=== PATIENT | male | born 1970 ===

== ENCOUNTER 2024-08-02 10:20 | Outpatient (CLI) | payer OTHER ==
[2024-08-02 10:48] LABS: HEMATOCRIT 41.9 % (39.0-48.0); HEMOGLOBIN 14.6 g/dL (13-16.00); MEAN CELL VOLUME 96.1 fL (80.0-100.00); MEAN CORPUSCULAR HEMOGLOBIN 33.4 pg (27.00-32.0); MEAN CORPUSCULAR HGB CONC 34.7 g/dl (32.0-36.0); PLATELET COUNT 235 K/uL (150-450); RED BLOOD COUNT 4.36 M/uL (4.00-6.00)
[2024-08-02 10:55] LABS: PH,URINE 6.5 (5.0-8.0); URINE APPEARANCE Clear; URINE BILIRRUBIN Negative (NEGATIVE); URINE BLOOD Negative; URINE COLOR Yellow; URINE GLUCOSE Negative (NEGATIVE); URINE KETONE Negative (NEGATIVE); URINE LEUKOCYTE Negative; URINE NITRATE Negative; URINE PROTEIN Negative (NEGATIVE); URINE UROBILINOGEN 0.2 E.U./dl
[2024-08-02 11:07] LABS: URINE BACTERIA 1.2 uL (0.0-1933); URINE EPITHELIAL CELLS 0.1 uL (0.0-38.8); URINE RBC 0.4 uL (0.0-20.8); URINE WBC 0.1 uL (0.0-23.2)
[2024-08-02 11:45] LABS: BILIRUBIN TOTAL 0.83 mg/dL (0.3-1.2); CALCIUM 9.2 mg/dL (8.5-10.1); CHOL HDL RATIO 2.5 (0-5.0); CREATININE SERUM 0.87 mg/dL (0.70-1.30); GFR 91.44; POTASSIUM 4.17 mEq/L (3.5-5.1); PROSTATIC SPECIFIC ANTIGEN 0.636 NG/ML (0.010-4.00); TSH 1.59 uIU/mL (0.358-3.74)
[2024-08-03 09:10] LABS: % FREE PSA 51.7 % (.); free psa 0.31 ng/mL; total psa 0.6 ng/mL (0.0-4.0)
== END 2024-08-02 10:21 | disposition home or self-care (01) ==
LOC: LAB 10:20
DX: E11.9 Type 2 diabetes mellitus without complications (principal); R30.0 Dysuria; D64.9 Anemia, unspecified; E78.5 Hyperlipidemia, unspecified; E03.9 Hypothyroidism, unspecified; E55.9 Vitamin D deficiency, unspecified; R97.20 Elevated prostate specific antigen [PSA]